=== PATIENT | female | born 1935 | race African-American/Black ===

== ENCOUNTER 2020-05-15 09:36 | Inpatient (IN) ==
[2020-05-15] MEDS ORDERED: ASPIRIN 325 MG TABLET PO STA (10:22)
[2020-05-15 11:00] LABS: Basophils % 0.2 % (0.0-0.8); Eosinophils # 0.4 10*3/uL (0.0-0.87); Eosinophils % 4.3 % (0.00-10.9); Hematocrit 27.4 VOL% (35.7-47.0); Hemoglobin 9.4 GM/DL (12.0-16.0); Immature Granulocytes % 0.4 %; Immature Granulocytes Absolute 0.03 #; Lymphocytes # 2.8 10*3/uL (1.4-4.0); Lymphocytes % 34.1 % (21.3-54.2); Mean Corpuscular HGB Conc 34.3 GM/DL (32-36); Mean Corpuscular Volume 99.3 FL (87-102); Monocytes % 11.1 % (1.7-12.7); Neutrophils % 49.9 % (38.7-73.9); Platelet Count 144 T/CUMM (130-400); Red Blood Count 2.76 MC/CUMM (3.8-5.5); Red Cell Distribution Width 14.4 % (9.3-17.3); White Blood Count 8.2 T/CUMM (4-12)
[2020-05-15 11:10] LABS: PT Patient Result 10.6 SECS (9.8-11.9); Partial Thromboplastin Time 21.1 SECS (23.9-33.8)
[2020-05-15 11:17] LABS: Hypochromasia 1+; Microcytosis 1+; Platelet Estimate Adequate
[2020-05-15] MEDS ORDERED: ACETAMINOPHEN 325 MG TABLET PO PRN (11:48)
[2020-05-15] MEDS ORDERED: GLUCAGON 1 MG VIAL IM PRN (11:48)
[2020-05-15] MEDS ORDERED: DOCUSATE SODIUM 100 MG CAPSULE PO PRN (11:48)
[2020-05-15] MEDS ORDERED: ONDANSETRON 4 MG/2 ML VIAL IV PRN (11:48)
[2020-05-15] MEDS ORDERED: DEXTROSE 50% 25 GM/50 ML VIAL IV PRN (11:48)
[2020-05-15 11:49] LABS: Bilirubin,Urine Negative (Negative); Blood, Urine Negative (Negative); Glucose,Urine (UA) Negative (Negative); Ketones,Urine Negative (Negative); Nitrite,Urine Negative (Negative); Protein,Urine 30 MG/DL; RBC,Urine 2 /HPF (0-4); Squamous Epithelial Cell,Urine Occasional /HPF (0-10); Urine Appearance CLEAR (Clear); Urine Color Straw (Yellow); Urine Specific Gravity 1.006 (1.001-1.035); Urine Urobilinogen < 2.0 EU/DL (0.2-1.0); WBC,Urine <1 /HPF (0-6)
[2020-05-15] MEDS ORDERED: LABETALOL 20 MG/4 ML SYRINGE IV PRN (12:02)
[2020-05-15 12:12] LABS: Barbiturates Screen,Urine Negative (Negative); Benzodiazepines Screen,Urine Negative (Negative); Cannabinoid Screen,Urine Negative (Negative); Opiate Screen,Urine Negative (Negative); Phencyclidine Screen,Urine Negative (Negative)
[2020-05-15 12:12] LABS: Alanine Aminotransferase 31 U/L (13-56); Albumin 3.5 G/DL (3.4-5.0); Alkaline Phosphatase 107 U/L (45-117); Aspartate Amino Transferase 41 U/L (0-37); Blood Urea Nitrogen 89 MG/DL (7-18); Calcium 8.7 MG/DL (8.5-10.1); Carbon Dioxide 22 MMOL/L (21-32); Estimated Glom Filtration Rate 19 ML/MIN; Glucose 206 MG/DL (74-106); Osmolality,Calculated 292.8 MOS/KG (273-304); Potassium 3.6 MMOL/L (3.5-5.1); Sodium 130 MMOL/L (136-145); Total Protein 7.1 G/DL (6.4-8.2)
[2020-05-15 12:27] LABS: Thyroid Stimulating Hormone 2.15 uIU/ml (0.358-3.74)
[2020-05-15] MEDS ORDERED: SODIUM CHLORIDE 0.9% 1,000 ML IV SCH (12:30)
[2020-05-15] MEDS: ENOXAPARIN 40 MG/0.4 ML SYRINGE SUBCUT SCH (12:52)
[2020-05-15] MEDS: FERROUS SULFATE 325 MG TABLET PO SCH ×2 (15:06→20:47)
[2020-05-15] MEDS: carvediloL 25 MG TABLET PO SCH (20:47)
[2020-05-15] MEDS ORDERED: PREGABALIN 50 MG CAPSULE PO SCH (21:00)
[2020-05-15] MEDS ORDERED: ATORVASTATIN 40 MG TABLET PO SCH (21:00)
[2020-05-16 05:27] LABS: Basophils % 0.2 % (0.0-0.8); Eosinophils # 0.3 10*3/uL (0.0-0.87); Eosinophils % 5.3 % (0.00-10.9); Hematocrit 25.6 VOL% (35.7-47.0); Hemoglobin 8.6 GM/DL (12.0-16.0); Immature Granulocytes % 0.3 %; Immature Granulocytes Absolute 0.02 #; Lymphocytes # 2.7 10*3/uL (1.4-4.0); Lymphocytes % 45.3 % (21.3-54.2); Mean Corpuscular HGB Conc 33.6 GM/DL (32-36); Mean Corpuscular Volume 99.6 FL (87-102); Mean Platelet Volume 14.2 FL (9.6-12.0); Monocytes % 12.1 % (1.7-12.7); Neutrophils % 36.8 % (38.7-73.9); Platelet Count 122 T/CUMM (130-400); Red Blood Count 2.57 MC/CUMM (3.8-5.5); Red Cell Distribution Width 13.8 % (9.3-17.3); White Blood Count 5.9 T/CUMM (4-12)
[2020-05-16 05:43] LABS: Calcium 8.5 MG/DL (8.5-10.1); Osmolality,Calculated 295.8 MOS/KG (273-304); Risk Ratio 2.85; VLDL CHOLESTEROL 42.2 MG/DL
[2020-05-16 06:34] LABS: Band Neutrophils 1 % (0-10); Eosinophils 8 % (0-10); Lymphocytes 40 % (20-55); Platelet Estimate Adequate; Segmented Neutrophils 39 % (50-85); Smudge Cells Few; Total Cells Counted 100
[2020-05-16 06:35] LABS: Anisocytosis 2+
[2020-05-16 06:36] LABS: Macrocytosis 1+
[2020-05-16] MEDS ORDERED: POTASSIUM CHLORIDE 20 MEQ TABLET PO ONE (07:55)
[2020-05-16] MEDS ORDERED: OLMESARTAN 20 MG TABLET PO SCH (09:00)
[2020-05-16] MEDS ORDERED: PANTOPRAZOLE 40 MG TABLET PO SCH (09:00)
[2020-05-16] MEDS ORDERED: ASPIRIN EC 81 MG TABLET PO SCH (09:00)
[2020-05-16] MEDS ORDERED: GLIMEPIRIDE 4 MG TABLET PO SCH (09:00)
[2020-05-16] MEDS ORDERED: CLOPIDOGREL 75 MG TABLET PO SCH (09:00)
[2020-05-16] MEDS ORDERED: allopurinoL 300 MG TABLET PO SCH (09:00)
[2020-05-16] MEDS ORDERED: DOXAZOSIN 4 MG TABLET PO SCH (09:00)
[2020-05-16] MEDS ORDERED: sitaGLIPtin 25 MG TABLET PO SCH (09:00)
[2020-05-16] MEDS ORDERED: CHOLECALCIFEROL 5,000 UNIT TABLET PO SCH (09:00)
[2020-05-16] MEDS ORDERED: ASCORBIC ACID 500 MG TABLET PO SCH (09:00)
[2020-05-16] MEDS: carvediloL 25 MG TABLET PO SCH (09:12)
[2020-05-16] MEDS: FERROUS SULFATE 325 MG TABLET PO SCH ×2 (09:21→15:13)
[2020-05-16 11:31] VITALS: BP 150/51
[2020-05-16] MEDS: ENOXAPARIN 40 MG/0.4 ML SYRINGE SUBCUT SCH (12:08)
== END 2020-05-16 16:25 | disposition home health service (06) | DRG 65 ==
LOC: N.ED 09:36 → N.EDINP 09:36 → SUATTDRO 12:13 → N.EDINP 13:12 → N.4E 13:40
PROVIDERS: ADMIT Emergency Medicine; ATTEND Internal Medicine